=== PATIENT | female | born 1985 | race Caucasian/White ===

== ENCOUNTER 2024-02-11 02:52 | Emergency (ER) | payer OTHER ==
[2024-02-11] MEDS ORDERED: Tranexamic Acid 1,000 MG/10 ML VIAL ONE (03:44)
[2024-02-11] MEDS ORDERED: Ondansetron PF 4 MG/2 ML Vial ONE (03:52)
== END 2024-02-11 06:00 | disposition home or self-care (01) ==
LOC: CSHERS 02:52
DX: K91.841 Postprocedural hemorrhage of a digestive system organ or structure following other procedure (principal)
CPT/HCPCS: 99283; J2405